=== PATIENT | male | born 1965 | race Caucasian/White ===

== ENCOUNTER 2017-11-10 18:38 | Inpatient (IN) | payer MEDICAID, SELFPAY ==
[~2017-11-10] VITALS: Ht 183.6 cm; Wt 94.7 kg
[2017-11-10] MEDS ORDERED: SODIUM CHLORIDE FLUSH 10ML SYR IVF ONE (19:00)
[2017-11-10] MEDS ORDERED: SODIUM CHLORIDE 0.9% 1,000ML IVBOLUS ONE ×2 (19:00→20:30)
[2017-11-10 19:23] LABS: PH, VENOUS 7.273 pH (7.320-7.420)
[2017-11-10 19:24] LABS: FIO2 RA %
[2017-11-10 19:32] LABS: BASOPHILS # (AUTO) 0.02 x10^3/uL (0-0.1); BASOPHILS % (AUTO) 0 % (0-1); EOSINOPHILS # (AUTO) 0.08 x10^3/uL (0-0.4); EOSINOPHILS % (AUTO) 1 % (1-7); LYMPHOCYTES % (AUTO) 24 % (22-44); MD NO; MEAN CORPUSCULAR HEMOGLOBIN 30.9 pg (27.5-34.5); MEAN CORPUSCULAR VOLUME 90.9 fL (81-97); MEAN PLATELET VOLUME 11.3 fL (7.4-10.4); MONOCYTES # (AUTO) 0.26 x10^3/uL (0.2-0.8); MONOCYTES % (AUTO) 3 % (2-9); NEUTROPHILS # (AUTO) 6.16 x10^3/uL (1.8-6.8); NEUTROPHILS % (AUTO) 72 % (42-75); PLATELET COUNT 260 x10^3/uL (130-400); RED BLOOD COUNT 4.88 x10^6/uL (4.38-5.82); RED CELL DISTRIBUTION WIDTH 12.7 % (9.4-14.8)
[2017-11-10 19:35] LABS: ALANINE AMINOTRANSFERASE 58 U/L (12-78); ALBUMIN 3.6 g/dL (3.4-5.0); ANION GAP 13 mmol/L (5-15); CALCIUM 8.6 mg/dL (8.5-10.1); CHLORIDE 78 mmol/L (98-107); CREATININE 2.49 mg/dL (0.7-1.3)
[2017-11-10 19:38] LABS: ACETONE, SERUM Moderate(40mg/dL) mg/dL (Negative)
[2017-11-10 19:46] LABS: ALKALINE PHOSPHATASE 251 U/L (45-117); BILIRUBIN,TOTAL 0.4 mg/dL (0.2-1.0); FREE T4 (FREE THYROXINE) 0.98 ng/dL (0.76-1.46); TOTAL PROTEIN 8.1 g/dL (6.4-8.2)
[2017-11-10 19:57] LABS: MICROSCOPIC NOT IND
[2017-11-10] MEDS ORDERED: INSULIN REGULAR 100 UNITS/ML, 3ML VIAL IVPush ONE (20:00)
[2017-11-10] MEDS ORDERED: SODIUM CHLORIDE 0.9% 1,000 ML IV ONE (20:00)
[2017-11-10 20:06] LABS: CULTURE INDICATED? NO
[2017-11-10] MEDS ORDERED: INSULIN REGULAR 100 UNITS/ML, 3ML VIAL ONE (20:21)
[2017-11-10] MEDS: SODIUM CHLORIDE 0.9% 1,000 ML IV SCH ×2 (20:22→20:57)
[2017-11-10] MEDS ORDERED: D5%-0.45% NACL 1,000 ML IV PRN (20:22)
[2017-11-10] MEDS ORDERED: REGULAR INSULIN 62.5 UNITS in SODIUM CHLORIDE 0.9% 249.375 ML IV PRN (20:22)
[2017-11-10] MEDS ORDERED: BISACODYL 10 MG SUPP PR PRN (20:30)
[2017-11-10] MEDS ORDERED: DOCUSATE 100 MG CAPSULE PO PRN (20:30)
[2017-11-10] MEDS ORDERED: hydrALAzine 20 MG/ML, 1ML IVPush PRN (20:30)
[2017-11-10] MEDS ORDERED: ACETAMINOPHEN 325 MG TABLET PO PRN (20:30)
[2017-11-10] MEDS ORDERED: ONDANSETRON 2MG/ML, 2ML IVPush PRN (20:30)
[2017-11-10] MEDS ORDERED: PROMETHAZINE 25 MG/ML, 1ML IM PRN (20:30)
[2017-11-10] MEDS ORDERED: OXYcodone IR 5MG TABLET PO PRN (20:30)
[2017-11-10] MEDS ORDERED: morphine SULFATE 10 MG/ML, 1ML IVPush PRN (20:30)
[2017-11-10] MEDS ORDERED: ONDANSETRON ODT 4 MG PO PRN (20:30)
[2017-11-10] MEDS ORDERED: POLYETHYLENE GLYCOL 17 GM PACKET PO PRN (20:30)
[2017-11-10] MEDS ORDERED: LISI1TAB7 PO (20:48)
[2017-11-10] MEDS ORDERED: OMEP20TA62 PO (20:52)
[2017-11-10] MEDS ORDERED: LEVO75TA5 PO (20:52)
[2017-11-10] MEDS ORDERED: LABETALOL 5MG/ML, 20ML IVPush PRN (21:00)
[2017-11-10 21:06] LABS: ANION GAP 12 mmol/L (5-15); CALCIUM 7.8 mg/dL (8.5-10.1); CHLORIDE 89 mmol/L (98-107)
[2017-11-10 21:16] LABS: FREE T4 (FREE THYROXINE) 0.94 ng/dL (0.76-1.46)
[2017-11-10 21:26] LABS: HEMOGLOBIN A1C 11.5 % (4.2-6.3)
[2017-11-10 21:30] VITALS: BP 164/108
[2017-11-10] MEDS: HEPARIN 5,000 UNITS/ML, 1ML SQ SCH (21:50)
[2017-11-11] MEDS: SODIUM CHLORIDE 0.9% 1,000 ML IV SCH (00:13)
[2017-11-11 02:25] LABS: ANION GAP 7 mmol/L (5-15); CALCIUM 8.3 mg/dL (8.5-10.1); CHLORIDE 102 mmol/L (98-107); CREATININE 1.54 mg/dL (0.7-1.3)
[2017-11-11 04:04] VITALS: BP 85/58
[2017-11-11 04:20] LABS: BASOPHILS # (AUTO) 0.11 x10^3/uL (0-0.1); BASOPHILS % (AUTO) 1 % (0-1); EOSINOPHILS # (AUTO) 0.18 x10^3/uL (0-0.4); EOSINOPHILS % (AUTO) 2 % (1-7); LYMPHOCYTES # (AUTO) 3.59 x10^3/uL (1-3.4); LYMPHOCYTES % (AUTO) 42 % (22-44); MD NO; MEAN CORPUSCULAR HEMOGLOBIN 30.2 pg (27.5-34.5); MEAN CORPUSCULAR HGB CONC 33.9 g/dL (33.2-36.2); MEAN CORPUSCULAR VOLUME 89.2 fL (81-97); MEAN PLATELET VOLUME 10.1 fL (7.4-10.4); MONOCYTES # (AUTO) 0.51 x10^3/uL (0.2-0.8); MONOCYTES % (AUTO) 6 % (2-9); NEUTROPHILS # (AUTO) 4.12 x10^3/uL (1.8-6.8); NEUTROPHILS % (AUTO) 48 % (42-75); PLATELET COUNT 234 x10^3/uL (130-400); RED BLOOD COUNT 4.28 x10^6/uL (4.38-5.82); RED CELL DISTRIBUTION WIDTH 12.4 % (9.4-14.8)
[2017-11-11] MEDS: HEPARIN 5,000 UNITS/ML, 1ML SQ SCH ×3 (04:28→20:51)
[2017-11-11 04:31] LABS: CHLORIDE 102 mmol/L (98-107)
[2017-11-11 04:47] LABS: ALANINE AMINOTRANSFERASE 44 U/L (12-78); ALKALINE PHOSPHATASE 107 U/L (45-117); ANION GAP 8 mmol/L (5-15); BILIRUBIN,TOTAL 0.7 mg/dL (0.2-1.0); CALCIUM 8.3 mg/dL (8.5-10.1); CHOL/HDL RATIO 4.1; CHOLESTEROL, TOTAL 114 mg/dL (140-239); CREATININE 1.39 mg/dL (0.7-1.3); HDL CHOL % 25 % (26-37); HDL CHOLESTEROL (DIRECT) 28 mg/dL (40-60); LDL CHOLESTEROL,CALCULATED 46 mg/dL (54-169); LDL/HDL RATIO 1.6 (0.5-3.0); TOTAL PROTEIN 6.5 g/dL (6.4-8.2); TRIGLYCERIDES 202 mg/dL (50-200); VLDL CHOLESTEROL 40 mg/dL (0-25)
[2017-11-11] MEDS: LEVOTHYROXINE 75 MCG TABLET PO SCH (06:03)
[2017-11-11] MEDS: INSULIN LISPRO 100 UNITS/ML, PEN SQ-INSULIN SCH ×5 (06:21→20:52)
[2017-11-11] MEDS ORDERED: INSULIN GLARGINE 100 UNITS/ML, PEN SQ-INSULIN SCH ×3 (07:30→21:00)
[2017-11-11] MEDS ORDERED: INSULIN LISPRO 100 UNITS/ML, PEN SQ-INSULIN SCH (08:00)
[2017-11-11] MEDS: OMEPRAZOLE 20 MG CAPSULE.DR PO SCH (08:14)
[2017-11-11] MEDS ORDERED: LISINOPRIL 20 MG TABLET PO SCH (09:00)
[2017-11-11] MEDS: AMLODIPINE 5 MG TABLET PO SCH ×2 (09:00→20:51)
[2017-11-11] MEDS ORDERED: INSULIN GLARGINE 100 UNITS/ML, PEN SQ-INSULIN ONE (11:30)
[2017-11-11] MEDS: SODIUM CHLORIDE 0.9% 100 ML IV SCH ×2 (15:30→16:30)
[2017-11-11 15:43] VITALS: BP 98/66
[2017-11-11] MEDS ORDERED: SODIUM CHLORIDE 0.9% 1,000 ML IV ONE (17:00)
[2017-11-11] MEDS: INSULIN GLARGINE 100 UNITS/ML, PEN SQ-INSULIN SCH (17:44)
[2017-11-11 19:35] VITALS: BP 91/61
[2017-11-11] MEDS ORDERED: SODIUM CHLORIDE 0.9% 1,000 ML IV SCH ×2 (20:22)
[2017-11-12 02:23] VITALS: BP 103/70
[2017-11-12 05:06] LABS: BASOPHILS # (AUTO) 0.04 x10^3/uL (0-0.1); BASOPHILS % (AUTO) 1 % (0-1); EOSINOPHILS # (AUTO) 0.14 x10^3/uL (0-0.4); EOSINOPHILS % (AUTO) 2 % (1-7); LYMPHOCYTES # (AUTO) 3.22 x10^3/uL (1-3.4); LYMPHOCYTES % (AUTO) 44 % (22-44); MD NO; MEAN CORPUSCULAR HEMOGLOBIN 30.8 pg (27.5-34.5); MEAN CORPUSCULAR HGB CONC 34.5 g/dL (33.2-36.2); MEAN CORPUSCULAR VOLUME 89.3 fL (81-97); MEAN PLATELET VOLUME 10.7 fL (7.4-10.4); MONOCYTES # (AUTO) 0.35 x10^3/uL (0.2-0.8); MONOCYTES % (AUTO) 5 % (2-9); NEUTROPHILS # (AUTO) 3.66 x10^3/uL (1.8-6.8); NEUTROPHILS % (AUTO) 49 % (42-75); PLATELET COUNT 214 x10^3/uL (130-400); RED BLOOD COUNT 4.09 x10^6/uL (4.38-5.82); RED CELL DISTRIBUTION WIDTH 12.9 % (9.4-14.8)
[2017-11-12 05:18] LABS: CALCIUM 8.1 mg/dL (8.5-10.1); CHLORIDE 103 mmol/L (98-107)
[2017-11-12 05:24] LABS: ALANINE AMINOTRANSFERASE 45 U/L (12-78); ALBUMIN 2.6 g/dL (3.4-5.0); ALKALINE PHOSPHATASE 80 U/L (45-117); ANION GAP 9 mmol/L (5-15); BILIRUBIN,TOTAL 0.3 mg/dL (0.2-1.0); TOTAL PROTEIN 6.1 g/dL (6.4-8.2)
[2017-11-12] MEDS: INSULIN GLARGINE 100 UNITS/ML, PEN SQ-INSULIN SCH (05:28)
[2017-11-12] MEDS: HEPARIN 5,000 UNITS/ML, 1ML SQ SCH ×3 (05:28→20:04)
[2017-11-12] MEDS: LEVOTHYROXINE 75 MCG TABLET PO SCH (05:28)
[2017-11-12] MEDS: INSULIN LISPRO 100 UNITS/ML, PEN SQ-INSULIN SCH ×4 (07:18→20:15)
[2017-11-12] MEDS ORDERED: INSULIN GLARGINE 100 UNITS/ML, PEN SQ-INSULIN ONE (07:30)
[2017-11-12 09:02] VITALS: BP 106/72
[2017-11-12] MEDS: AMLODIPINE 5 MG TABLET PO SCH (09:13)
[2017-11-12] MEDS: OMEPRAZOLE 20 MG CAPSULE.DR PO SCH (09:13)
[2017-11-12] MEDS: SODIUM CHLORIDE 0.9% 1,000 ML IV SCH ×2 (13:27→20:04)
[2017-11-12] MEDS: NEUTRA PHOS K 250 MG TABLET PO SCH ×3 (13:27→20:04)
[2017-11-12 15:31] VITALS: BP 102/65
[2017-11-12 20:02] VITALS: BP 110/73
[2017-11-12] MEDS ORDERED: INSULIN GLARGINE 100 UNITS/ML, PEN SQ-INSULIN SCH ×3 (21:00)
[2017-11-13 03:50] VITALS: BP 131/82
[2017-11-13] MEDS: LEVOTHYROXINE 75 MCG TABLET PO SCH (05:17)
[2017-11-13] MEDS: HEPARIN 5,000 UNITS/ML, 1ML SQ SCH (05:17)
[2017-11-13 05:34] LABS: ANION GAP 8 mmol/L (5-15); CALCIUM 8.1 mg/dL (8.5-10.1); CHLORIDE 109 mmol/L (98-107); CREATININE 1.09 mg/dL (0.7-1.3)
[2017-11-13 06:45] VITALS: BP 124/83
[2017-11-13] MEDS: INSULIN LISPRO 100 UNITS/ML, PEN SQ-INSULIN SCH ×2 (07:37→11:36)
[2017-11-13] MEDS ORDERED: INSULIN GLARGINE 100 UNITS/ML, PEN SQ-INSULIN SCH (09:00)
[2017-11-13] MEDS ORDERED: AMLODIPINE 5 MG TABLET PO SCH (09:00)
[2017-11-13] MEDS: OMEPRAZOLE 20 MG CAPSULE.DR PO SCH (09:02)
[2017-11-13] MEDS ORDERED: AMLO5TAB2 PO (11:08)
[2017-11-13] MEDS ORDERED: POTASSIUM CHLORIDE 20 MEQ TAB.ER.PRT PO ONE (11:30)
[2017-11-13 13:11] VITALS: BP 131/84
[2017-11-13] MEDS ORDERED: INSU100I34 SC (13:25)
== END 2017-11-13 14:21 | disposition home or self-care (01) | DRG 682 ==
LOC: ED 20:24 → CCU 20:25 → ED 21:24 → 3NE 11-11 14:44
PROVIDERS: ADMIT Internal Medicine; ATTEND Internal Medicine
DX: N17.9 Acute kidney failure, unspecified (principal); E11.00 Type 2 diabetes mellitus with hyperosmolarity without nonketotic hyperglycemic-hyperosmolar coma (NKHHC); E87.1 Hypo-osmolality and hyponatremia; E86.0 Dehydration; K21.9 Gastro-esophageal reflux disease without esophagitis; I10 Essential (primary) hypertension; F17.210 Nicotine dependence, cigarettes, uncomplicated; E83.39 Other disorders of phosphorus metabolism; E11.65 Type 2 diabetes mellitus with hyperglycemia; E03.9 Hypothyroidism, unspecified; Z79.899 Other long term (current) drug therapy; Z79.1 Long term (current) use of non-steroidal anti-inflammatories (NSAID); Z79.2 Long term (current) use of antibiotics
CPT/HCPCS: 36415; 80048; 80053; 80061; 81003; 82010; 82803; 82947; 82962; 83036; 83735; 84100; 84439; 84443; 84481; 85025; 87081; 93005; 96361; 96374; 99291; J1644; J1815; J7030

== ENCOUNTER 2018-11-23 13:49 | Inpatient (IN) | payer MEDICAID ==
[~2018-11-23] VITALS: Ht 182.9 cm; Wt 90.4 kg
[2018-11-26 08:07] VITALS: BP 145/92
== END 2018-11-26 14:14 | disposition home or self-care (01) | DRG 638 ==
LOC: ED 15:49 → EDIP 16:35 → 3NE 17:35 → DCLOUNGE 11-26 13:55
PROVIDERS: ADMIT Student in an Organized Health Care Education/Training Program; ATTEND Student in an Organized Health Care Education/Training Program
DX: E11.65 Type 2 diabetes mellitus with hyperglycemia (principal); N17.9 Acute kidney failure, unspecified; E03.9 Hypothyroidism, unspecified; E86.0 Dehydration; F17.210 Nicotine dependence, cigarettes, uncomplicated; I10 Essential (primary) hypertension; K21.9 Gastro-esophageal reflux disease without esophagitis
CPT/HCPCS: 36415; 80048; 80053; 81003; 82010; 82800; 82947; 82962; 83036; 83519; 84439; 84443; 85025; 86337; 86341; 96374; 99285; G0378; J2405; J1815; J7030; J7040

== ENCOUNTER 2018-12-11 15:51 | Inpatient (IN) | payer MEDICAID ==
[~2018-12-11] VITALS: Ht 182.9 cm; Wt 89.0 kg
[2018-12-13 08:40] VITALS: BP 103/68
== END 2018-12-13 10:57 | disposition home or self-care (01) | DRG 871 ==
LOC: ED 17:32 → EDIP 17:33 → ED 17:47 → 5SO 19:25 → DCLOUNGE 12-13 10:45
PROVIDERS: ADMIT Internal Medicine; ATTEND Internal Medicine
DX: A41.9 Sepsis, unspecified organism (principal); J18.1 Lobar pneumonia, unspecified organism; N17.0 Acute kidney failure with tubular necrosis; R65.21 Severe sepsis with septic shock; D64.9 Anemia, unspecified; E03.9 Hypothyroidism, unspecified; E86.0 Dehydration; F17.210 Nicotine dependence, cigarettes, uncomplicated; I25.2 Old myocardial infarction; I35.8 Other nonrheumatic aortic valve disorders; K21.9 Gastro-esophageal reflux disease without esophagitis; Z79.4 Long term (current) use of insulin; Z91.14 Patient's other noncompliance with medication regimen; R19.7 Diarrhea, unspecified; E11.649 Type 2 diabetes mellitus with hypoglycemia without coma; I12.9 Hypertensive chronic kidney disease with stage 1 through stage 4 chronic kidney disease, or unspecified chronic kidney disease; E11.22 Type 2 diabetes mellitus with diabetic chronic kidney disease; E11.21 Type 2 diabetes mellitus with diabetic nephropathy
CPT/HCPCS: 36415; 71045; 71046; 78452; 80048; 80061; 82040; 82947; 82962; 83605; 83735; 84145; 84443; 84484; 85025; 87040; 93005; 93017; 93306; 99285; G0378; J0456; J0696; J1644; A9502; C9898; J1815; J7030; J7050

== ENCOUNTER 2020-01-09 15:05 | Emergency (ER) | payer MEDICAID ==
[~2020-01-09] VITALS: Ht 182.9 cm; Wt 86.0 kg
[~2020-01-09 15:05] MED LIST: AMLO-150 PO; ATOR20TA37 PO; BASAGLAR KWIKPEN SC; DULA0.75 SQ; INSU100I13 SQ-INSULIN; INSU100I34 SC; INSU100V34 SQ; LEVO75TA5 PO; LISI1TAB20 PO; LISI5TAB7 PO; METF500T17 PO; NICO-485 TD; OMEP20TA62 PO
[2020-01-09 15:31] VITALS: BP 144/101
--- NOTE | 2020-01-09 16:13 | NUR ---
MANAGEMENT PROFESSOR: PT TO ROOM FROM NATALEE MCGOWAN
[2020-01-09 16:20] LABS: BASOPHILS # (AUTO) 0.05 x10^3/uL (0-0.1); BASOPHILS % (AUTO) 1 % (0-1); EOSINOPHILS # (AUTO) 0.14 x10^3/uL (0-0.4); EOSINOPHILS % (AUTO) 2 % (1-7); LYMPHOCYTES # (AUTO) 2.23 x10^3/uL (1-3.4); LYMPHOCYTES % (AUTO) 33 % (22-44); MD NO; MEAN CORPUSCULAR HEMOGLOBIN 29.6 pg (27.5-34.5); MEAN CORPUSCULAR VOLUME 92.4 fL (81-97); MEAN PLATELET VOLUME 9.4 fL (7.4-10.4); MONOCYTES # (AUTO) 0.38 x10^3/uL (0.2-0.8); MONOCYTES % (AUTO) 6 % (2-9); NEUTROPHILS # (AUTO) 3.87 x10^3/uL (1.8-6.8); NEUTROPHILS % (AUTO) 58 % (42-75); PLATELET COUNT 207 x10^3/uL (130-400); RED BLOOD COUNT 4.33 x10^6/uL (4.38-5.82); RED CELL DISTRIBUTION WIDTH 12.8 % (9.4-14.8)
[2020-01-09 16:28] LABS: ANION GAP 5 mmol/L (5-15); CALCIUM 9.2 mg/dL (8.5-10.1); CHLORIDE 96 mmol/L (98-107); CREATININE 1.66 mg/dL (0.7-1.3)
[2020-01-09] MEDS ORDERED: DIPH,PERTUSS(ACELL),TET VAC/PF 0.5 ML IM-VACC ONE ×2 (16:30→17:22)
--- NOTE | 2020-01-09 16:53 | NUR ---
RECEIVED CRITICAL VALUE OF BLOOD GLUCOSE 683. NOTIFIED. PIV PLACED, IVF RUNNING.
[2020-01-09] MEDS ORDERED: SODIUM CHLORIDE 0.9% 1,000ML IVBOLUS ONE ×2 (17:30)
--- NOTE | 2020-01-09 17:38 | NUR ---
2ND LITER NS RUNNING PER JUN.
[2020-01-09 18:28] LABS: ALBUMIN 3.1 g/dL (3.4-5.0); ANION GAP 6 mmol/L (5-15); CALCIUM 8.3 mg/dL (8.5-10.1); CHLORIDE 103 mmol/L (98-107)
[2020-01-09 18:30] LABS: CREATININE 1.47 mg/dL (0.7-1.3)
[2020-01-09] MEDS ORDERED: INSULIN SINGLE DOSE, ER ONE (19:23)
[2020-01-09] MEDS ORDERED: INSULIN REGULAR 100 UNITS/ML, 3ML VIAL IVPush ONE (19:30)
== END 2020-01-09 20:27 | disposition home or self-care (01) ==
LOC: ED 19:35
DX: S90.821A Blister (nonthermal), right foot, initial encounter (principal); E11.621 Type 2 diabetes mellitus with foot ulcer; L89.92 Pressure ulcer of unspecified site, stage 2; I10 Essential (primary) hypertension; K21.9 Gastro-esophageal reflux disease without esophagitis; F17.200 Nicotine dependence, unspecified, uncomplicated; X58.XXXA Exposure to other specified factors, initial encounter; Y93.89 Activity, other specified; Y92.89 Other specified places as the place of occurrence of the external cause; Y99.8 Other external cause status
CPT/HCPCS: 36415; 73630; 80048; 82040; 82962; 85025; 90471; 90715; 96361; 96374; 99284; J1815; J7030

== ENCOUNTER 2020-06-10 15:39 | Inpatient (IN) | payer MEDICAID ==
[~2020-06-10] VITALS: Ht 182.9 cm; Wt 85.1 kg
[2020-06-10] MEDS ORDERED: SODIUM CHLORIDE 0.9% 1,000ML IVBOLUS ONE ×2 (16:00→18:00)
[2020-06-10 16:19] LABS: O2 FLOW ROOM AIR L/min
[2020-06-10 16:26] LABS: BASOPHILS % (AUTO) 1 % (0-1); EOSINOPHILS % (AUTO) 1 % (1-7); LYMPHOCYTES % (AUTO) 11 % (22-44); MEAN CORPUSCULAR HGB CONC 34.1 g/dL (33.2-36.2); MEAN PLATELET VOLUME 9.6 fL (7.4-10.4); MONOCYTES % (AUTO) 8 % (2-9); NEUTROPHILS % (AUTO) 80 % (42-75); PLATELET COUNT 248 x10^3/uL (130-400); RED BLOOD COUNT 4.01 x10^6/uL (4.38-5.82); RED CELL DISTRIBUTION WIDTH 12.6 % (9.4-14.8)
[2020-06-10 16:28] LABS: MD NO
[2020-06-10 16:29] LABS: ALBUMIN 3.3 g/dL (3.4-5.0); ANION GAP 8 mmol/L (5-15); CALCIUM 9.2 mg/dL (8.5-10.1); CHLORIDE 99 mmol/L (98-107)
[2020-06-10 16:32] LABS: ALANINE AMINOTRANSFERASE 34 U/L (12-78); ALKALINE PHOSPHATASE 100 U/L (45-117); BILIRUBIN,TOTAL 0.9 mg/dL (0.2-1.0); CREATININE 3.96 mg/dL (0.7-1.3); TOTAL PROTEIN 8.4 g/dL (6.4-8.2)
--- NOTE | 2020-06-10 17:01 | NUR ---
supervisor silvering department: pt from lobby to room 26
[2020-06-10 17:04] LABS: ACETONE, SERUM Negative (Negative)
[2020-06-10] MEDS ORDERED: INSU100I34 SQ-INSULIN (17:38)
[2020-06-10] MEDS ORDERED: LEVO25TA2 PO (17:38)
[2020-06-10] MEDS ORDERED: LIDOCAINE 2%,20 ML JEL.PF.APP MM ONE (17:44)
[2020-06-10 18:24] LABS: MICROSCOPIC AUTO
--- NOTE | 2020-06-10 18:35 | NUR ---
PT IN BED WITH NO SIGNS OR SYMPTOMS OF ACUTE DISTRESS NOTED RESPIRATIONS EVEN AND UNLABORED STATES PAIN IN ABD DOWN TO 3/10, COMPLAINING OF BEING HUNGRY. PT ON HOG CONFINEMENT SYSTEM MANAGER, IVF COMPLETE AT THIS TIME. DAWSON IN PLACE, CLAMPED AT THIS TIME. BED RAILS UP BILATERALLY AND CALL LIGHT WITHIN REACH
--- NOTE | 2020-06-10 19:28 | NUR ---
REPORT CALLED TO FLOOR, PT READY TO TRANSPORT. THIS RN IN ROOM TO DRAIN ANOTHER 1L OFF DAWSON, LINE CLAMPED. PT IN BED WITH ETL ARCHITECT IN PLACE, BED RAILS UP BILATERALLY AND CALL LIGHT WITHIN REACH. NO SIGNS OR SYMPTOMS OF ACUTE DISTRESS NOTED RESPIRATIONS EVEN AND UNLABORED
[2020-06-10] MEDS ORDERED: ONDANSETRON 2MG/ML, 2ML IVPush PRN (20:00)
[2020-06-10] MEDS ORDERED: OXYcodone IR 5MG TABLET PO PRN (20:00)
[2020-06-10] MEDS ORDERED: MAGNESIUM SULFATE PMX 2GM/50ML 50 ML IV ONE (20:00)
[2020-06-10] MEDS ORDERED: POLYETHYLENE GLYCOL 17 GM PACKET PO PRN (20:00)
[2020-06-10] MEDS ORDERED: BISACODYL 10 MG SUPP PR PRN (20:00)
[2020-06-10] MEDS ORDERED: PROMETHAZINE 25 MG/ML, 1ML IM PRN (20:00)
[2020-06-10] MEDS ORDERED: hydrALAzine 20 MG/ML, 1ML IVPush PRN (20:00)
[2020-06-10] MEDS ORDERED: ONDANSETRON ODT 4 MG PO PRN (20:00)
[2020-06-10] MEDS ORDERED: morphine SULFATE 10 MG/ML, 1ML IVPush PRN (20:00)
[2020-06-10] MEDS ORDERED: DOCUSATE 100 MG CAPSULE PO PRN (20:00)
[2020-06-10 20:27] VITALS: BP 129/81
[2020-06-10 20:36] VITALS: BP 129/81
[2020-06-10] MEDS: SODIUM CHLORIDE 0.9% 1,000 ML IV SCH (21:12)
[2020-06-10] MEDS: CEFTRIAXONE PMX 2GM/50ML 50 ML IVPB SCH (21:44)
[2020-06-10] MEDS: HEPARIN 5,000 UNITS/ML, 1ML SQ SCH (21:44)
[2020-06-10] MEDS: INSULIN LISPRO 100 UNITS/ML, PEN SQ-INSULIN SCH (21:46)
[2020-06-10] MEDS: INSULIN GLARGINE 100 UNITS/ML, PEN SQ-INSULIN SCH (21:46)
[2020-06-10 23:28] LABS: ANION GAP 8 mmol/L (5-15); CALCIUM 8.5 mg/dL (8.5-10.1); CHLORIDE 105 mmol/L (98-107); CREATININE 3.26 mg/dL (0.7-1.3)
[2020-06-11 00:29] VITALS: BP 134/83
[2020-06-11] MEDS: ACETAMINOPHEN 325 MG TABLET PO PRN ×3 (01:00→16:22)
[2020-06-11] MEDS: SODIUM CHLORIDE 0.9% 1,000 ML IV SCH ×2 (05:02→13:05)
[2020-06-11] MEDS: HEPARIN 5,000 UNITS/ML, 1ML SQ SCH ×3 (05:03→20:37)
[2020-06-11] MEDS: INSULIN LISPRO 100 UNITS/ML, PEN SQ-INSULIN SCH ×4 (07:00→20:38)
[2020-06-11 07:14] VITALS: BP 152/78
[2020-06-11] MEDS: TAMSULOSIN 0.4 MG CAP.ER.24H PO SCH (07:53)
[2020-06-11 08:57] LABS: BASOPHILS % (AUTO) 1 % (0-1); EOSINOPHILS % (AUTO) 0 % (1-7); LYMPHOCYTES % (AUTO) 10 % (22-44); MEAN CORPUSCULAR HEMOGLOBIN 29.7 pg (27.5-34.5); MEAN CORPUSCULAR HGB CONC 33.5 g/dL (33.2-36.2); MEAN PLATELET VOLUME 9.4 fL (7.4-10.4); MONOCYTES % (AUTO) 9 % (2-9); NEUTROPHILS % (AUTO) 80 % (42-75); PLATELET COUNT 213 x10^3/uL (130-400); RED BLOOD COUNT 3.83 x10^6/uL (4.38-5.82); RED CELL DISTRIBUTION WIDTH 12.6 % (9.4-14.8)
[2020-06-11 09:05] LABS: ALBUMIN 2.7 g/dL (3.4-5.0); ANION GAP 9 mmol/L (5-15); CALCIUM 8.9 mg/dL (8.5-10.1); CHLORIDE 105 mmol/L (98-107)
[2020-06-11 09:06] LABS: MD NO
[2020-06-11 09:15] LABS: ALANINE AMINOTRANSFERASE 24 U/L (12-78); ALKALINE PHOSPHATASE 75 U/L (45-117); BILIRUBIN,TOTAL 0.6 mg/dL (0.2-1.0); CHOL/HDL RATIO 2.5; CHOLESTEROL, TOTAL 112 mg/dL (140-239); CREATININE 2.69 mg/dL (0.7-1.3); HDL CHOL % 39 % (26-37); HDL CHOLESTEROL (DIRECT) 44 mg/dL (40-60); LDL CHOLESTEROL,CALCULATED 49 mg/dL (54-169); LDL/HDL RATIO 1.1 (0.5-3.0); TOTAL PROTEIN 7.2 g/dL (6.4-8.2); TRIGLYCERIDES 96 mg/dL (50-200); VLDL CHOLESTEROL 19 mg/dL (0-25)
[2020-06-11 10:09] LABS: ESTIMATED AVERAGE GLUCOSE 355 mg/dL (0-126)
[2020-06-11] MEDS: INSULIN GLARGINE 100 UNITS/ML, PEN SQ-INSULIN SCH ×2 (11:18→20:38)
[2020-06-11 12:16] VITALS: BP 101/59
[2020-06-11] MEDS ORDERED: PHARMACOKINETIC MONITORING MC PRN (13:30)
[2020-06-11] MEDS ORDERED: PHARMACOKINETIC CONSULTATION MC ONE (13:30)
[2020-06-11] MEDS ORDERED: VANCOMYCIN 1,700 MG in SODIUM CHLORIDE 0.9% 250 ML IV ONE (13:30)
[2020-06-11] MEDS ORDERED: VANCOMYCIN PER PHARMACY MC PRN (13:30)
[2020-06-11 19:08] VITALS: BP 90/56
[2020-06-11 19:28] VITALS: BP 96/59
[2020-06-11] MEDS: CEFTRIAXONE PMX 2GM/50ML 50 ML IVPB SCH (19:28)
[2020-06-11] MEDS ORDERED: LINEZOLID 600 MG TABLET PO SCH (21:00)
[2020-06-12 01:01] VITALS: BP 122/81
[2020-06-12 04:32] LABS: BASOPHILS % (AUTO) 1 % (0-1); EOSINOPHILS % (AUTO) 1 % (1-7); LYMPHOCYTES % (AUTO) 14 % (22-44); MEAN CORPUSCULAR HEMOGLOBIN 30.1 pg (27.5-34.5); MEAN CORPUSCULAR HGB CONC 34.5 g/dL (33.2-36.2); MEAN PLATELET VOLUME 9.7 fL (7.4-10.4); MONOCYTES % (AUTO) 8 % (2-9); NEUTROPHILS % (AUTO) 76 % (42-75); PLATELET COUNT 197 x10^3/uL (130-400); RED BLOOD COUNT 3.23 x10^6/uL (4.38-5.82); RED CELL DISTRIBUTION WIDTH 12.2 % (9.4-14.8)
[2020-06-12 04:37] LABS: MD NO
[2020-06-12 04:42] LABS: ALANINE AMINOTRANSFERASE 19 U/L (12-78); ALBUMIN 2.2 g/dL (3.4-5.0); ANION GAP 9 mmol/L (5-15); CALCIUM 8.3 mg/dL (8.5-10.1); CHLORIDE 106 mmol/L (98-107)
[2020-06-12 04:45] LABS: ALKALINE PHOSPHATASE 79 U/L (45-117); BILIRUBIN,TOTAL 0.2 mg/dL (0.2-1.0); TOTAL PROTEIN 6.7 g/dL (6.4-8.2)
[2020-06-12] MEDS: HEPARIN 5,000 UNITS/ML, 1ML SQ SCH ×2 (05:06→13:13)
[2020-06-12 06:50] VITALS: BP 113/78
[2020-06-12] MEDS: ACETAMINOPHEN 325 MG TABLET PO PRN (07:27)
[2020-06-12] MEDS: INSULIN GLARGINE 100 UNITS/ML, PEN SQ-INSULIN SCH ×2 (07:28→20:25)
[2020-06-12] MEDS: INSULIN LISPRO 100 UNITS/ML, PEN SQ-INSULIN SCH ×4 (07:28→20:25)
[2020-06-12] MEDS: TAMSULOSIN 0.4 MG CAP.ER.24H PO SCH (07:42)
[2020-06-12] MEDS ORDERED: VANCOMYCIN 1,600 MG in SODIUM CHLORIDE 0.9% 250 ML IV ONE (10:00)
[2020-06-12] MEDS ORDERED: CEFAZOLIN 2,000 MG in SODIUM CHLORIDE 0.9% 50 ML IV SCH (13:30)
[2020-06-12] MEDS ORDERED: PNEUMOC 13-VALENT VACC, 0.5 ML IM-VACC ONE (13:30)
[2020-06-12 13:38] VITALS: BP 96/63
[2020-06-12 14:48] LABS: HCT (SEDRATE) 27.7 % (39.2-51.8)
[2020-06-12] MEDS: CEFAZOLIN PMX 2GM/50ML 50 ML IVPB SCH (15:54)
[2020-06-12 20:53] VITALS: BP 124/85
[2020-06-13 02:55] VITALS: BP 116/82
[2020-06-13] MEDS: CEFAZOLIN PMX 2GM/50ML 50 ML IVPB SCH ×3 (03:11→19:59)
[2020-06-13 04:22] LABS: BASOPHILS % (AUTO) 1 % (0-1); EOSINOPHILS % (AUTO) 3 % (1-7); LYMPHOCYTES % (AUTO) 23 % (22-44); MEAN CORPUSCULAR HEMOGLOBIN 30.2 pg (27.5-34.5); MEAN CORPUSCULAR HGB CONC 34.2 g/dL (33.2-36.2); MEAN PLATELET VOLUME 8.7 fL (7.4-10.4); MONOCYTES % (AUTO) 8 % (2-9); NEUTROPHILS % (AUTO) 65 % (42-75); PLATELET COUNT 239 x10^3/uL (130-400); RED BLOOD COUNT 3.15 x10^6/uL (4.38-5.82); RED CELL DISTRIBUTION WIDTH 12.3 % (9.4-14.8)
[2020-06-13 04:27] LABS: MD NO
[2020-06-13 04:29] LABS: ANION GAP 7 mmol/L (5-15); CALCIUM 8.4 mg/dL (8.5-10.1); CHLORIDE 107 mmol/L (98-107)
[2020-06-13 06:25] VITALS: BP 138/93
[2020-06-13] MEDS: INSULIN LISPRO 100 UNITS/ML, PEN SQ-INSULIN SCH ×4 (07:39→19:59)
[2020-06-13] MEDS ORDERED: MAGNESIUM SULFATE PMX 2GM/50ML 50 ML IV ONE (09:00)
[2020-06-13] MEDS: TAMSULOSIN 0.4 MG CAP.ER.24H PO SCH (09:14)
[2020-06-13] MEDS: INSULIN GLARGINE 100 UNITS/ML, PEN SQ-INSULIN SCH (09:15)
[2020-06-13 12:41] VITALS: BP 105/70
[2020-06-13 19:13] VITALS: BP 96/64
[2020-06-13] MEDS: ACETAMINOPHEN 325 MG TABLET PO PRN (21:47)
[2020-06-14 00:44] VITALS: BP 128/79
[2020-06-14] MEDS: CEFAZOLIN PMX 2GM/50ML 50 ML IVPB SCH ×3 (03:58→19:42)
[2020-06-14 04:34] LABS: BASOPHILS % (AUTO) 1 % (0-1); EOSINOPHILS % (AUTO) 4 % (1-7); LYMPHOCYTES % (AUTO) 27 % (22-44); MEAN CORPUSCULAR HEMOGLOBIN 30.7 pg (27.5-34.5); MEAN CORPUSCULAR HGB CONC 35.1 g/dL (33.2-36.2); MEAN PLATELET VOLUME 8.7 fL (7.4-10.4); MONOCYTES % (AUTO) 7 % (2-9); NEUTROPHILS % (AUTO) 61 % (42-75); PLATELET COUNT 282 x10^3/uL (130-400); RED BLOOD COUNT 3.29 x10^6/uL (4.38-5.82); RED CELL DISTRIBUTION WIDTH 12.3 % (9.4-14.8)
[2020-06-14 04:41] LABS: MD NO
[2020-06-14 04:42] LABS: ANION GAP 10 mmol/L (5-15); CALCIUM 8.5 mg/dL (8.5-10.1); CHLORIDE 104 mmol/L (98-107); CREATININE 2.05 mg/dL (0.7-1.3)
[2020-06-14 06:33] VITALS: BP 142/89
[2020-06-14] MEDS: TAMSULOSIN 0.4 MG CAP.ER.24H PO SCH (08:01)
[2020-06-14] MEDS: INSULIN GLARGINE 100 UNITS/ML, PEN SQ-INSULIN SCH (08:08)
[2020-06-14] MEDS: INSULIN LISPRO 100 UNITS/ML, PEN SQ-INSULIN SCH ×4 (08:09→19:45)
[2020-06-14] MEDS: SODIUM CHLORIDE 0.9% 1,000 ML IV SCH ×2 (08:14→19:43)
[2020-06-14] MEDS ORDERED: MAGNESIUM SULFATE PMX 2GM/50ML 50 ML IV ONE (09:00)
[2020-06-14 12:20] VITALS: BP 96/67
[2020-06-14 19:40] VITALS: BP 127/82
[2020-06-14] MEDS ORDERED: INSULIN GLARGINE 100 UNITS/ML, PEN SQ-INSULIN SCH (21:00)
[2020-06-14] MEDS ORDERED: CALCIUM CARBONATE 500 MG TAB.CHEW PO ONE (21:30)
[2020-06-14] MEDS ORDERED: OMEPRAZOLE 20 MG CAPSULE.DR PO PRN (21:30)
[2020-06-15 02:03] VITALS: BP 124/85
[2020-06-15] MEDS: SODIUM CHLORIDE 0.9% 1,000 ML IV SCH (03:29)
[2020-06-15] MEDS: CEFAZOLIN PMX 2GM/50ML 50 ML IVPB SCH ×3 (03:32→19:55)
[2020-06-15 05:16] LABS: BASOPHILS % (AUTO) 2 % (0-1); EOSINOPHILS % (AUTO) 4 % (1-7); LYMPHOCYTES % (AUTO) 29 % (22-44); MEAN CORPUSCULAR HGB CONC 34.4 g/dL (33.2-36.2); MEAN PLATELET VOLUME 9.1 fL (7.4-10.4); MONOCYTES % (AUTO) 8 % (2-9); NEUTROPHILS % (AUTO) 58 % (42-75); PLATELET COUNT 301 x10^3/uL (130-400); RED BLOOD COUNT 3.36 x10^6/uL (4.38-5.82); RED CELL DISTRIBUTION WIDTH 12.6 % (9.4-14.8)
[2020-06-15 05:20] LABS: ANION GAP 8 mmol/L (5-15); CALCIUM 8.6 mg/dL (8.5-10.1); CHLORIDE 104 mmol/L (98-107); CREATININE 1.86 mg/dL (0.7-1.3)
[2020-06-15 05:26] LABS: MD NO
[2020-06-15 06:56] VITALS: BP 117/81
[2020-06-15] MEDS: INSULIN LISPRO 100 UNITS/ML, PEN SQ-INSULIN SCH ×6 (07:35→20:04)
[2020-06-15] MEDS: TAMSULOSIN 0.4 MG CAP.ER.24H PO SCH (08:41)
[2020-06-15 12:10] VITALS: BP 103/70
[2020-06-15] MEDS: ATORVASTATIN 20 MG TABLET PO SCH (19:55)
[2020-06-15] MEDS: INSULIN GLARGINE 100 UNITS/ML, PEN SQ-INSULIN SCH (20:03)
[2020-06-15 20:19] VITALS: BP 97/65
[2020-06-16 00:24] VITALS: BP 100/65
[2020-06-16] MEDS: CEFAZOLIN PMX 2GM/50ML 50 ML IVPB SCH ×3 (03:50→20:18)
[2020-06-16 05:00] LABS: ANION GAP 7 mmol/L (5-15); CALCIUM 8.6 mg/dL (8.5-10.1); CHLORIDE 104 mmol/L (98-107)
[2020-06-16 05:01] LABS: CREATININE 1.94 mg/dL (0.7-1.3)
[2020-06-16] MEDS: LEVOTHYROXINE 125 MCG TABLET PO SCH (06:11)
[2020-06-16] MEDS ORDERED: SODIUM CHLORIDE 0.9% 1,000ML IVBOLUS ONE (06:30)
[2020-06-16 06:35] VITALS: BP 119/74
[2020-06-16] MEDS ORDERED: INSULIN LISPRO 100 UNITS/ML, PEN SQ-INSULIN SCH (07:00)
[2020-06-16] MEDS: INSULIN GLARGINE 100 UNITS/ML, PEN SQ-INSULIN SCH ×3 (08:15→20:23)
[2020-06-16] MEDS: TAMSULOSIN 0.4 MG CAP.ER.24H PO SCH (08:38)
[2020-06-16] MEDS: INSULIN LISPRO 100 UNITS/ML, PEN SQ-INSULIN SCH ×6 (08:41→20:24)
[2020-06-16 12:09] VITALS: BP 106/72
[2020-06-16] MEDS: ATORVASTATIN 20 MG TABLET PO SCH (20:21)
[2020-06-16 20:28] VITALS: BP 108/74
[2020-06-16] MEDS ORDERED: MELATONIN 5 MG TABLET ONE (20:39)
[2020-06-16] MEDS ORDERED: MELATONIN 5 MG TABLET PO PRN (21:00)
[2020-06-17 00:50] VITALS: BP 112/72
[2020-06-17] MEDS: CEFAZOLIN PMX 2GM/50ML 50 ML IVPB SCH (04:30)
[2020-06-17] MEDS: LEVOTHYROXINE 125 MCG TABLET PO SCH (06:11)
[2020-06-17] MEDS: INSULIN LISPRO 100 UNITS/ML, PEN SQ-INSULIN SCH ×4 (07:00→11:00)
[2020-06-17 07:01] VITALS: BP 106/74
[2020-06-17 07:48] LABS: ANION GAP 7 mmol/L (5-15); CALCIUM 8.9 mg/dL (8.5-10.1); CHLORIDE 108 mmol/L (98-107); CREATININE 1.91 mg/dL (0.7-1.3)
[2020-06-17] MEDS ORDERED: ERTAPENEM 1 GM IM ONE (08:30)
[2020-06-17] MEDS ORDERED: TAMS-11 PO ×2 (08:57→08:58)
[2020-06-17] MEDS ORDERED: INSU100I13 SQ-INSULIN (08:57)
[2020-06-17] MEDS ORDERED: ERTA1VIA IVPB (08:57)
[2020-06-17] MEDS ORDERED: INSU100I11 SQ-INSULIN (08:57)
[2020-06-17] MEDS ORDERED: LIDOCAINE 1%, 10ML IM ONE (09:00)
[2020-06-17] MEDS ORDERED: ERTAPENEM 1 GM in SODIUM CHLORIDE 0.9% 50 ML IV ONE ×2 (09:30→11:00)
[2020-06-17] MEDS: TAMSULOSIN 0.4 MG CAP.ER.24H PO SCH (10:15)
[2020-06-17] MEDS: INSULIN GLARGINE 100 UNITS/ML, PEN SQ-INSULIN SCH (11:06)
== END 2020-06-17 12:30 | disposition home or self-care (01) | DRG 871 ==
LOC: ED 17:30 → EDIP 19:03 → 4WST 19:56 → DCLOUNGE 06-17 12:21
PROVIDERS: ADMIT Internal Medicine; ATTEND Hospitalist
PROC: 02HV33Z Insertion of Infusion Device into Superior Vena Cava, Percutaneous Approach (ICD-10-PCS; principal; 2020-06-16)
PROC: B548ZZA Ultrasonography of Superior Vena Cava, Guidance (ICD-10-PCS; 2020-06-16)
PROC: B5181ZA Fluoroscopy of Superior Vena Cava using Low Osmolar Contrast, Guidance (ICD-10-PCS; 2020-06-16)
DX: A41.01 Sepsis due to Methicillin susceptible Staphylococcus aureus (principal); N17.0 Acute kidney failure with tubular necrosis; E87.1 Hypo-osmolality and hyponatremia; N13.6 Pyonephrosis; B18.2 Chronic viral hepatitis C; D64.9 Anemia, unspecified; E03.9 Hypothyroidism, unspecified; E11.22 Type 2 diabetes mellitus with diabetic chronic kidney disease; E11.65 Type 2 diabetes mellitus with hyperglycemia; E78.5 Hyperlipidemia, unspecified; E86.0 Dehydration; E87.5 Hyperkalemia; F17.210 Nicotine dependence, cigarettes, uncomplicated; I12.9 Hypertensive chronic kidney disease with stage 1 through stage 4 chronic kidney disease, or unspecified chronic kidney disease; I25.2 Old myocardial infarction; K05.6 Periodontal disease, unspecified; K21.9 Gastro-esophageal reflux disease without esophagitis; N18.30 Chronic kidney disease, stage 3 unspecified; N32.0 Bladder-neck obstruction; N40.1 Benign prostatic hyperplasia with lower urinary tract symptoms; N41.9 Inflammatory disease of prostate, unspecified; R33.8 Other retention of urine; R65.20 Severe sepsis without septic shock; Z79.890 Hormone replacement therapy; Z79.899 Other long term (current) drug therapy; I95.9 Hypotension, unspecified
CPT/HCPCS: 36415; 36573; 71045; 74176; 76770; 80048; 80053; 80061; 80202; 81001; 82010; 82803; 82947; 82962; 83036; 83735; 84100; 84443; 85025; 85651; 86140; 86705; 86706; 86803; 87040; 87077; 87086; 87147; 87186; 87340; 87521; 93005; 93306; 96374; 99285; 99291; G0378; J0690; J0696; J1335; J1644; J3370; C1751; G0009; J1815; J3475; J7030; J7050

== ENCOUNTER → 2020-07-23 | Outpatient (CLI) | payer MEDICAID ==
[~2020-07-23] MED LIST changes: +ATOR20TA86 PO; +ERTA1VIA IVPB; +INSU100I11 SQ-INSULIN; +INSU100I34 SQ; +INSU100I34 SQ-INSULIN; +INSU100I48 SQ; +LEVO25TA2 PO; +LISI-606 PO; +SMZ/TMP; +TAMS-11 PO
== END | disposition home or self-care (01) ==
LOC: STAR 10:09
PROVIDERS: ATTEND Urology
DX: Z20.822 Contact with and (suspected) exposure to COVID-19 (principal); N40.1 Benign prostatic hyperplasia with lower urinary tract symptoms
CPT/HCPCS: U0003

== ENCOUNTER 2020-07-27 16:46 | Inpatient (IN) | payer MEDICAID ==
[~2020-07-27] VITALS: Ht 182.9 cm; Wt 84.8 kg
[2020-07-27] MEDS ORDERED: DAPTOMYCIN 420 MG in SODIUM CHLORIDE 0.9% 100 ML IVPB STA (16:53)
--- NOTE | 2020-07-27 17:00 | NUR ---
ASSUMED CARE OF PATIENT. PT REPORTS HIS UROLOGIST DR POE, WANTED HIM TO COME TO THE ER FOR A BLOOD INFECTION. PT IS SUPPOSED TO HAVE SURGERY ON HIS PROSTATE. PT DOES HAVE A DAWSON CATHETER IN PLACE. NO ACUTE DISTRESS NOTED. VS STABLE. CALL LIGHT IN PLACE. WILL CONTINUE TO MONITOR.
--- NOTE | 2020-07-27 17:02 | NUR ---
DR RHOADES IN ROOM
--- NOTE | 2020-07-27 17:21 | NUR ---
BOTH BLOOD CULTURES DRAWN
[2020-07-27 17:27] LABS: BASOPHILS % (AUTO) 1 % (0-1); EOSINOPHILS % (AUTO) 5 % (1-7); LYMPHOCYTES % (AUTO) 21 % (22-44); MEAN CORPUSCULAR HEMOGLOBIN 31.3 pg (27.5-34.5); MEAN CORPUSCULAR HGB CONC 34.2 g/dL (33.2-36.2); MONOCYTES % (AUTO) 4 % (2-9); NEUTROPHILS % (AUTO) 70 % (42-75); PLATELET COUNT 267 x10^3/uL (130-400); RED BLOOD COUNT 3.28 x10^6/uL (4.38-5.82); RED CELL DISTRIBUTION WIDTH 13.6 % (9.4-14.8)
[2020-07-27 17:28] LABS: MD NO
--- NOTE | 2020-07-27 17:30 | NUR ---
dr garcia okayed patient to eat
[2020-07-27 17:54] LABS: ALBUMIN 3.1 g/dL (3.4-5.0); ANION GAP 6 mmol/L (5-15); CALCIUM 8.3 mg/dL (8.5-10.1); CHLORIDE 106 mmol/L (98-107); CREATININE 2.07 mg/dL (0.7-1.3)
[2020-07-27 18:04] LABS: MICROSCOPIC INDICATED
[2020-07-27] MEDS: DAPTOMYCIN 500 MG in SODIUM CHLORIDE 0.9% 100 ML IVPB SCH (18:11)
[2020-07-27] MEDS ORDERED: SODIUM CHLORIDE FLUSH 10ML SYR IVF PRN (18:30)
--- NOTE | 2020-07-27 18:31 | NUR ---
PT WATCHING TV IN ROOM. VS STABLE. NO ACUTE DISTRESS NOTED. CALL LIGHT IN PLACE. WILL CONTINUE TO MONITOR.
--- NOTE | 2020-07-27 18:58 | NUR ---
PT HAD NOT EATING ALL DAY BECAUSE HE THOUGHT HE WAS HAVING SURGERY. PER DR RHOADES PT WAS GIVEN A MEAL TRAY. VS STABLE. NO ACUTE DISTRESS NOTED. CALL LIGHT IN PLACE. WILL CONTINUE TO MONITOR.
--- NOTE | 2020-07-27 19:06 | NUR ---
HOSPITALIST IN ROOM
[2020-07-27 19:43] VITALS: BP 123/79
[2020-07-27] MEDS ORDERED: LIDODERM 5% PATCH TD PRN (20:00)
[2020-07-27] MEDS ORDERED: ENALAPRILAT 1.25 MG/ML, 2ML IVPush PRN (20:00)
[2020-07-27] MEDS ORDERED: ACETAMINOPHEN 325 MG TABLET PO PRN (20:00)
[2020-07-27] MEDS ORDERED: DOCUSATE 100 MG CAPSULE PO PRN (20:00)
[2020-07-27] MEDS ORDERED: MELATONIN 5 MG TABLET PO PRN (21:00)
[2020-07-27] MEDS ORDERED: INSULIN LISPRO 100 UNITS/ML, PEN SQ-INSULIN SCH (21:30)
[2020-07-27] MEDS ORDERED: INSULIN GLARGINE 100 UNITS/ML, PEN SQ-INSULIN SCH (21:30)
[2020-07-27] MEDS: INSULIN GLARGINE 100 UNITS/ML, PEN SQ-INSULIN SCH (22:28)
[2020-07-27] MEDS: ATORVASTATIN 20 MG TABLET PO SCH (22:28)
[2020-07-27] MEDS: LISINOPRIL 5 MG TABLET PO SCH (22:28)
[2020-07-27] MEDS: HEPARIN 5,000 UNITS/ML, 1ML SQ SCH (22:29)
[2020-07-28] MEDS ORDERED: PHARMACY MAY ADJ FOR RENAL FX MC PRN
[2020-07-28 01:41] VITALS: BP 125/83
[2020-07-28 04:58] LABS: BASOPHILS % (AUTO) 1 % (0-1); EOSINOPHILS % (AUTO) 8 % (1-7); LYMPHOCYTES % (AUTO) 39 % (22-44); MEAN CORPUSCULAR HEMOGLOBIN 30.9 pg (27.5-34.5); MEAN CORPUSCULAR HGB CONC 33.9 g/dL (33.2-36.2); MONOCYTES % (AUTO) 5 % (2-9); NEUTROPHILS % (AUTO) 48 % (42-75); PLATELET COUNT 266 x10^3/uL (130-400); RED BLOOD COUNT 3.36 x10^6/uL (4.38-5.82); RED CELL DISTRIBUTION WIDTH 13.7 % (9.4-14.8)
[2020-07-28 05:07] LABS: MD NO
[2020-07-28 05:09] LABS: ANION GAP 3 mmol/L (5-15); CALCIUM 8.5 mg/dL (8.5-10.1); CHLORIDE 108 mmol/L (98-107); CREATININE 1.74 mg/dL (0.7-1.3)
[2020-07-28] MEDS: OMEPRAZOLE 20 MG CAPSULE.DR PO SCH (06:35)
[2020-07-28] MEDS: HEPARIN 5,000 UNITS/ML, 1ML SQ SCH ×2 (06:35→16:45)
[2020-07-28] MEDS: LEVOTHYROXINE 125 MCG TABLET PO SCH (06:35)
[2020-07-28] MEDS: INSULIN LISPRO 100 UNITS/ML, PEN SQ-INSULIN SCH ×4 (07:00→21:20)
[2020-07-28] MEDS ORDERED: INSULIN LISPRO 100 UNITS/ML, PEN SQ-INSULIN SCH (07:30)
[2020-07-28 08:30] VITALS: BP 126/85
[2020-07-28] MEDS: TAMSULOSIN 0.4 MG CAP.ER.24H PO SCH (09:31)
[2020-07-28] MEDS: LISINOPRIL 5 MG TABLET PO SCH ×2 (09:31→21:09)
[2020-07-28] MEDS ORDERED: INSULIN LISPRO 100 UNIT/ML, 3ML VIAL SQ-INSULIN SCH (11:30)
[2020-07-28 14:50] VITALS: BP 131/84
[2020-07-28] MEDS: DAPTOMYCIN 500 MG in SODIUM CHLORIDE 0.9% 100 ML IVPB SCH (18:06)
[2020-07-28 19:29] VITALS: BP 115/75
[2020-07-28] MEDS: ATORVASTATIN 20 MG TABLET PO SCH (21:09)
[2020-07-28] MEDS: INSULIN GLARGINE 100 UNITS/ML, PEN SQ-INSULIN SCH (21:19)
[2020-07-29] MEDS: HEPARIN 5,000 UNITS/ML, 1ML SQ SCH ×3 (00:13→16:24)
[2020-07-29 01:00] VITALS: BP 121/84
[2020-07-29] MEDS: LEVOTHYROXINE 125 MCG TABLET PO SCH (04:25)
[2020-07-29] MEDS: OMEPRAZOLE 20 MG CAPSULE.DR PO SCH (06:01)
[2020-07-29 06:03] LABS: BASOPHILS % (AUTO) 1 % (0-1); EOSINOPHILS % (AUTO) 6 % (1-7); LYMPHOCYTES % (AUTO) 33 % (22-44); MEAN CORPUSCULAR HEMOGLOBIN 30.9 pg (27.5-34.5); MEAN CORPUSCULAR HGB CONC 33.9 g/dL (33.2-36.2); MONOCYTES % (AUTO) 5 % (2-9); NEUTROPHILS % (AUTO) 56 % (42-75); PLATELET COUNT 257 x10^3/uL (130-400); RED BLOOD COUNT 3.69 x10^6/uL (4.38-5.82); RED CELL DISTRIBUTION WIDTH 13.5 % (9.4-14.8)
[2020-07-29 06:05] LABS: MD NO
[2020-07-29 06:10] LABS: ALBUMIN 2.8 g/dL (3.4-5.0); ANION GAP 7 mmol/L (5-15); CALCIUM 8.6 mg/dL (8.5-10.1); CHLORIDE 108 mmol/L (98-107); CREATININE 1.53 mg/dL (0.7-1.3)
[2020-07-29] MEDS: INSULIN LISPRO 100 UNITS/ML, PEN SQ-INSULIN SCH ×4 (07:00→20:40)
[2020-07-29 08:02] VITALS: BP 121/79
[2020-07-29] MEDS: LISINOPRIL 5 MG TABLET PO SCH ×2 (08:41→20:42)
[2020-07-29] MEDS: TAMSULOSIN 0.4 MG CAP.ER.24H PO SCH (08:41)
[2020-07-29 13:13] VITALS: BP 113/79
[2020-07-29] MEDS: PIPERACILLIN/TAZO/PMX 3.375GM 50 ML IV SCH (17:55)
[2020-07-29] MEDS: DAPTOMYCIN 500 MG in SODIUM CHLORIDE 0.9% 100 ML IVPB SCH (18:38)
[2020-07-29 18:51] VITALS: BP 116/75
[2020-07-29] MEDS: INSULIN GLARGINE 100 UNITS/ML, PEN SQ-INSULIN SCH (20:39)
[2020-07-29] MEDS: ATORVASTATIN 20 MG TABLET PO SCH (20:42)
[2020-07-30 00:04] VITALS: BP 126/90
[2020-07-30] MEDS: HEPARIN 5,000 UNITS/ML, 1ML SQ SCH ×4 (01:42→23:21)
[2020-07-30] MEDS: PIPERACILLIN/TAZO/PMX 3.375GM 50 ML IV SCH ×3 (01:42→17:44)
[2020-07-30] MEDS: LEVOTHYROXINE 125 MCG TABLET PO SCH (05:33)
[2020-07-30] MEDS: OMEPRAZOLE 20 MG CAPSULE.DR PO SCH (06:31)
[2020-07-30] MEDS: TAMSULOSIN 0.4 MG CAP.ER.24H PO SCH (07:50)
[2020-07-30 07:51] VITALS: BP 117/77
[2020-07-30] MEDS: LISINOPRIL 5 MG TABLET PO SCH ×2 (07:51→21:02)
[2020-07-30] MEDS: INSULIN LISPRO 100 UNITS/ML, PEN SQ-INSULIN SCH ×4 (07:57→20:59)
[2020-07-30 15:16] VITALS: BP 102/64
[2020-07-30] MEDS: DAPTOMYCIN 500 MG in SODIUM CHLORIDE 0.9% 100 ML IVPB SCH (18:25)
[2020-07-30 18:46] VITALS: BP 137/92
[2020-07-30] MEDS: INSULIN GLARGINE 100 UNITS/ML, PEN SQ-INSULIN SCH (20:59)
[2020-07-30 21:00] VITALS: BP 119/85
[2020-07-30] MEDS: ATORVASTATIN 20 MG TABLET PO SCH (21:00)
[2020-07-31] MEDS: PIPERACILLIN/TAZO/PMX 3.375GM 50 ML IV SCH (01:40)
[2020-07-31 01:50] VITALS: BP 125/90
[2020-07-31] MEDS: OMEPRAZOLE 20 MG CAPSULE.DR PO SCH (06:07)
[2020-07-31] MEDS: LEVOTHYROXINE 125 MCG TABLET PO SCH (06:07)
[2020-07-31] MEDS: INSULIN LISPRO 100 UNITS/ML, PEN SQ-INSULIN SCH ×4 (07:48→22:03)
[2020-07-31] MEDS: TAMSULOSIN 0.4 MG CAP.ER.24H PO SCH (07:49)
[2020-07-31] MEDS: LISINOPRIL 5 MG TABLET PO SCH ×2 (07:49→21:39)
[2020-07-31 07:51] VITALS: BP 123/86
[2020-07-31] MEDS: HEPARIN 5,000 UNITS/ML, 1ML SQ SCH ×2 (11:49→18:33)
[2020-07-31] MEDS: MEROPENEM 1 GM in SODIUM CHLORIDE 0.9% 100 ML IV SCH ×2 (11:54→23:46)
[2020-07-31 13:17] VITALS: BP 112/76
[2020-07-31] MEDS ORDERED: CHLORHEXIDINE 15 ML UDC PO ONE ×2 (16:00→19:00)
[2020-07-31] MEDS ORDERED: PROPOFOL 10 MG/ML, 20ML ONE (16:26)
[2020-07-31] MEDS ORDERED: SUGAMMADEX 200 MG/2 ML IVPush ONE (16:26)
[2020-07-31] MEDS ORDERED: ROCURONIUM 10 MG/ML,10ML ONE (16:26)
[2020-07-31] MEDS ORDERED: CEFAZOLIN 1,000 MG ONE (16:26)
[2020-07-31] MEDS ORDERED: FENTANYL PF 100 MCG/2ML ONE (16:26)
[2020-07-31] MEDS ORDERED: MIDAZOLAM 1 MG/ML, 2ML ONE (16:26)
[2020-07-31] MEDS ORDERED: DIAZEPAM 5 MG/ML, 2ML IVPush PRN (17:30)
[2020-07-31] MEDS ORDERED: PROMETHAZINE 25 MG/ML, 1ML IVPush PRN (17:30)
[2020-07-31] MEDS ORDERED: MEPERIDINE/PF 25MG/0.5ML IVPush PRN (17:30)
[2020-07-31] MEDS ORDERED: LABETALOL 5MG/ML, 20ML IV PRN (17:30)
[2020-07-31] MEDS ORDERED: ACETAMINOPHEN 325 MG TABLET PO PRN (17:30)
[2020-07-31] MEDS ORDERED: OXYcodone 5 MG/5 ML ORAL.SOL UDC PO PRN (17:30)
[2020-07-31] MEDS ORDERED: FENTANYL PF 100 MCG/2ML IV PRN (17:30)
[2020-07-31] MEDS ORDERED: ONDANSETRON 2MG/ML, 2ML IVPush PRN (17:30)
[2020-07-31] MEDS ORDERED: DIPHENHYDRAMINE 50 MG/ML, 1ML IVPush PRN (17:30)
[2020-07-31] MEDS ORDERED: hydrALAzine 20 MG/ML, 1ML IV PRN (17:30)
[2020-07-31] MEDS ORDERED: HYDROmorphone 1 MG/ML, 1ML INJ IVPush PRN (17:30)
[2020-07-31 20:11] VITALS: BP 139/85
[2020-07-31] MEDS: ATORVASTATIN 20 MG TABLET PO SCH (21:39)
[2020-07-31] MEDS: DAPTOMYCIN 500 MG in SODIUM CHLORIDE 0.9% 100 ML IVPB SCH (21:40)
[2020-07-31] MEDS: INSULIN GLARGINE 100 UNITS/ML, PEN SQ-INSULIN SCH (22:02)
[2020-08-01] MEDS: HEPARIN 5,000 UNITS/ML, 1ML SQ SCH (02:05)
[2020-08-01 03:00] VITALS: BP 109/75
[2020-08-01] MEDS: LEVOTHYROXINE 125 MCG TABLET PO SCH (06:33)
[2020-08-01] MEDS: OMEPRAZOLE 20 MG CAPSULE.DR PO SCH (06:33)
[2020-08-01] MEDS: TAMSULOSIN 0.4 MG CAP.ER.24H PO SCH (07:58)
[2020-08-01] MEDS: MEROPENEM 1 GM in SODIUM CHLORIDE 0.9% 100 ML IV SCH (07:58)
[2020-08-01] MEDS: LISINOPRIL 5 MG TABLET PO SCH (07:58)
[2020-08-01] MEDS: INSULIN LISPRO 100 UNITS/ML, PEN SQ-INSULIN SCH (07:58)
[2020-08-01 08:04] VITALS: BP 101/72
[2020-08-01 09:09] LABS: BASOPHILS % (AUTO) 1 % (0-1); EOSINOPHILS % (AUTO) 4 % (1-7); LYMPHOCYTES % (AUTO) 21 % (22-44); MEAN CORPUSCULAR HEMOGLOBIN 30.7 pg (27.5-34.5); MEAN CORPUSCULAR HGB CONC 33.4 g/dL (33.2-36.2); MEAN PLATELET VOLUME 9.4 fL (7.4-10.4); MONOCYTES % (AUTO) 6 % (2-9); NEUTROPHILS % (AUTO) 68 % (42-75); PLATELET COUNT 258 x10^3/uL (130-400); RED BLOOD COUNT 3.89 x10^6/uL (4.38-5.82); RED CELL DISTRIBUTION WIDTH 13.5 % (9.4-14.8)
[2020-08-01 09:10] LABS: MD NO
[2020-08-01 09:19] LABS: ANION GAP 3 mmol/L (5-15); CALCIUM 8.7 mg/dL (8.5-10.1); CHLORIDE 104 mmol/L (98-107); CREATININE 1.83 mg/dL (0.7-1.3)
[2020-08-01] MEDS ORDERED: LINEZOLID 600 MG TABLET PO SCH (10:00)
[2020-08-01] MEDS ORDERED: LEVOFLOXACIN 750 MG TABLET PO SCH (10:00)
[2020-08-01] MEDS ORDERED: LINE600T15 PO (10:06)
[2020-08-01] MEDS ORDERED: LEVO750T6 PO (10:06)
== END 2020-08-01 11:00 | disposition home or self-care (01) | DRG 666 ==
LOC: ED 18:22 → EDIP 18:28 → ED 18:49 → 4NW 19:39
PROVIDERS: ADMIT Internal Medicine; ATTEND Internal Medicine
PROC: 0VB08ZZ Excision of Prostate, Via Natural or Artificial Opening Endoscopic (ICD-10-PCS; principal; 2020-07-31 17:00)
DX: T83.518A Infection and inflammatory reaction due to other urinary catheter, initial encounter (principal); N30.00 Acute cystitis without hematuria; R78.81 Bacteremia; Z16.21 Resistance to vancomycin; B95.2 Enterococcus as the cause of diseases classified elsewhere; D63.1 Anemia in chronic kidney disease; E03.9 Hypothyroidism, unspecified; E11.22 Type 2 diabetes mellitus with diabetic chronic kidney disease; E11.65 Type 2 diabetes mellitus with hyperglycemia; E78.5 Hyperlipidemia, unspecified; F17.210 Nicotine dependence, cigarettes, uncomplicated; N18.30 Chronic kidney disease, stage 3 unspecified; I12.9 Hypertensive chronic kidney disease with stage 1 through stage 4 chronic kidney disease, or unspecified chronic kidney disease; N40.1 Benign prostatic hyperplasia with lower urinary tract symptoms; B19.20 Unspecified viral hepatitis C without hepatic coma; Y84.6 Urinary catheterization as the cause of abnormal reaction of the patient, or of later complication, without mention of misadventure at the time of the procedure; Z79.4 Long term (current) use of insulin; Z81.1 Family history of alcohol abuse and dependence; Z82.49 Family history of ischemic heart disease and other diseases of the circulatory system
CPT/HCPCS: 36415; 80048; 80069; 81001; 82040; 82962; 83735; 85025; 87040; 87077; 87086; 87186; 93005; 96365; G0378; J0690; J0878; J1644; J2185; J2250; J2543; J2704; J3010; J1815

== ENCOUNTER 2020-08-13 21:28 | Emergency (ER) | payer MEDICAID ==
[~2020-08-13] VITALS: Ht 182.9 cm; Wt 85.8 kg
[~2020-08-13 21:28] MED LIST changes: +LEVO750T6 PO; +LINE600T15 PO
--- NOTE | 2020-08-13 21:56 | NUR ---
PT AMBULATED TO ROOM. C/O PAIN TO LOWER ABDOMEN RELATED TO NOT BEING ABLE TO URINATE SINCE YESTERDAY. PT SAYS IT'S THE FIRST TIME. AND THAT HE RECENTLY HAD PROSTATE SURGERY TO REDUCE THE PROSTATE SIZE.
--- NOTE | 2020-08-13 22:08 | NUR ---
PT DRANK A LITTLE BIT OF WATER TO TRY AND URINATE. ATTEMPTED IT AND UNABLE TO URINATE AT THIS TIME. PA TO BEDSIDE TO EVAL PT.
--- NOTE | 2020-08-13 22:35 | NUR ---
16FR DAWSON CATHETER PLACED USING STERILE TECHNIQUE AND FOLLOWING PROTOCOL FOR NEEDS. PRIOR TO PLACEMENT, PTS BLADDER WAS SCANNED AND THE SCANNER SHOWS >999ML OF URINE IN THE BLADDER. PT SCANNED 2 TIMES. CATHETER PLACED WITHOUT ISSUE, NO RESISTANCE AND PT TOLERATED WELL, AND GREATER THAN 2.5 LITERS HAVE DRAINED AFTER APPROXIMATELY 10 MIN. PA MADE AWARE.
[2020-08-13 23:18] VITALS: BP 128/68
--- NOTE | 2020-08-13 23:34 | NUR ---
PT BLADDER SCANNED AGAIN, AND THE MACHINE SAYS 0 ML VOLUME AT THIS TIME.
--- NOTE | 2020-08-14 00:02 | NUR ---
2ND SAMPLE OF URINE SENT TO LAB AT THIS TIME, NO RESULTS CAME BACK THE FIRST TIME, AND IT IS NOT FOUND AT THIS TIME.
[2020-08-14 00:29] LABS: MICROSCOPIC INDICATED
--- NOTE | 2020-08-14 00:53 | NUR ---
PT PROVIDED SANDWICH AND SOME CRACKERS TO HELP HIM HE SAYS HE'S STARVING, AND DIDN'T GET TO EAT DINNER.
--- NOTE | 2020-08-14 01:29 | NUR ---
PT TO BE D/C'D. AND DAWSON BAG REPLACED FOR PT. HE IS BEING D/C'D. STERILE TECHNIQUE USED AND PT TOLERATED WELL. F/U AND D/C INSTRUCTIONS GIVEN TO PT WITH PRESCRIPTIONS AND HE V/U AND AMBULATED OUT.
== END 2020-08-14 01:32 | disposition home or self-care (01) ==
LOC: ED 08-14 01:01
DX: N30.01 Acute cystitis with hematuria (principal); N40.1 Benign prostatic hyperplasia with lower urinary tract symptoms; R33.8 Other retention of urine; K21.9 Gastro-esophageal reflux disease without esophagitis; E11.9 Type 2 diabetes mellitus without complications
CPT/HCPCS: 51702; 81001; 87086; 87106; 99284

== ENCOUNTER 2020-09-02 19:28 | Emergency (ER) | payer MEDICAID ==
[~2020-09-02] VITALS: Ht 182.9 cm; Wt 74.5 kg
[2020-09-02] MEDS ORDERED: INSU100C5 SQ-INSULIN (19:36)
[2020-09-02] MEDS ORDERED: CHOL10003 PO (19:36)
[2020-09-02] MEDS ORDERED: ARGI1000 PO (19:36)
[2020-09-02] MEDS ORDERED: CINN500C2 PO (19:36)
--- NOTE | 2020-09-02 19:47 | NUR ---
PT BIB EMS FOR HYPOTENSION. STATES HE HAS BEEN FEELING WEAKER RECENTLY WITH DIZZINESS, LIGHT HEADEDNESS AND 3-4 FALLS. STATES HE HIT HIS HEAD ONCE ON A FALL BUT DENIES LOC. ON ARRIVAL PT FOUND TO BE HYPOTENSIVE 84/63. PT GIVEN 1L NS ENROUTE. BP NOW 106/74. PT STATES HE WAS HERE ABOUT A MONTH AGO FOR URINARY SEPSIS, THEN 2 WEEKS AGO HAD A PROSTATE SX. PT REPORTS PEEING BLOOD LAST NIGHT THAT WAS DARK IN COLOR BUT HAS SINCE RESOLVED. PT HAS HX OF DM AND EMS REPORTS GLUCOSE OF [address] 376 GLUCOSE FS ON ARRIVAL. NAD, BED IN LOWEST, RAILS ENGAGED, CALL LIGHT ON LAP, VSS, WCTM. PROVIDED WARM BLANKETS OR COMFORT.
[2020-09-02] MEDS ORDERED: ONDANSETRON 2MG/ML, 2ML ONE (20:13)
[2020-09-02] MEDS ORDERED: SODIUM CHLORIDE FLUSH 10ML SYR IVF ONE (20:30)
[2020-09-02] MEDS ORDERED: SODIUM CHLORIDE 0.9% 1,000ML IVBOLUS ONE ×2 (20:30→21:30)
[2020-09-02] MEDS ORDERED: ONDANSETRON 2MG/ML, 2ML IVPush ONE (20:30)
[2020-09-02 20:42] LABS: ALANINE AMINOTRANSFERASE 68 U/L (12-78); ALBUMIN 3.4 g/dL (3.4-5.0); ANION GAP 17 mmol/L (5-15); CALCIUM 9.1 mg/dL (8.5-10.1); CHLORIDE 96 mmol/L (98-107); CREATININE 2.41 mg/dL (0.7-1.3)
[2020-09-02 20:43] LABS: BASOPHILS % (AUTO) 2 % (0-1); EOSINOPHILS % (AUTO) 1 % (1-7); LYMPHOCYTES % (AUTO) 36 % (22-44); MD NO; MEAN CORPUSCULAR HGB CONC 33.1 g/dL (33.2-36.2); MEAN PLATELET VOLUME 9.6 fL (7.4-10.4); MONOCYTES % (AUTO) 7 % (2-9); NEUTROPHILS % (AUTO) 54 % (42-75); PLATELET COUNT 369 x10^3/uL (130-400); RED BLOOD COUNT 4.22 x10^6/uL (4.38-5.82)
[2020-09-02 20:46] LABS: ALKALINE PHOSPHATASE 137 U/L (45-117); BILIRUBIN,TOTAL 0.4 mg/dL (0.2-1.0); TOTAL PROTEIN 7.9 g/dL (6.4-8.2); TROPONIN I < 0.015 ng/mL (0.000-0.045)
--- NOTE | 2020-09-02 21:23 | NUR ---
PT NAD, RESTING ON GURNEY, APPEARS COMFORTABLE, VSS, PROVIDED URINAL AND INFORMED THAT WE NEED URINE SAMPLE. PT BED IN LOWEST, RAILS ENGAGED, CALL LIGHT ON LAP, WCTM. WAITING FOR UA SAMPLE.
[2020-09-02 22:07] LABS: MICROSCOPIC INDICATED
--- NOTE | 2020-09-02 22:22 | NUR ---
PT RESTING ON GURNEY, NAD, EYES CLOSED, VSS, NO CHANGE IN CONDITION, CHART UP FOR RCK. WCTM.
[2020-09-02] MEDS ORDERED: CEFDINIR 300 MG CAPSULE PO ONE (22:30)
[2020-09-02] MEDS ORDERED: CEFDINIR 300 MG CAPSULE ONE (22:52)
[2020-09-02 22:58] VITALS: BP 124/81
--- NOTE | 2020-09-02 22:59 | NUR ---
Patient given discharge instructions and they have confirmed that they understand the instructions. Patient ambulatory with steady gait. RN CALLED PT S.O. AND GAVE HER UPDATE ON DC AND DIAGNOSIS. ALL QUESTIONS ANSWERED APPROPRIATELY. PT NAD, DENIES ADDITIONAL NEEDS, VSS, NO PERSONAL BELONGINGS LEFT IN ROOM AFTER DC.
== END 2020-09-02 23:24 | disposition home or self-care (01) ==
LOC: ED 20:50
DX: N30.01 Acute cystitis with hematuria (principal); R55 Syncope and collapse; E86.0 Dehydration; R11.2 Nausea with vomiting, unspecified; E11.22 Type 2 diabetes mellitus with diabetic chronic kidney disease; I12.9 Hypertensive chronic kidney disease with stage 1 through stage 4 chronic kidney disease, or unspecified chronic kidney disease; N18.9 Chronic kidney disease, unspecified; R94.31 Abnormal electrocardiogram [ECG] [EKG]; E03.9 Hypothyroidism, unspecified; K21.9 Gastro-esophageal reflux disease without esophagitis
CPT/HCPCS: 36415; 80053; 81001; 83690; 84484; 85025; 87086; 93005; 96361; 96374; 99285; J2405; J7030; 87077

== ENCOUNTER 2020-09-04 17:22 | Emergency (ER) | payer MEDICAID ==
[~2020-09-04] VITALS: Ht 185.4 cm; Wt 72.2 kg
[~2020-09-04 17:22] MED LIST changes: +ARGI1000 PO; +CHOL10003 PO; +CINN500C2 PO; +INSU100C5 SQ-INSULIN
--- NOTE | 2020-09-04 17:46 | NUR ---
PT ADELITA, EMS REPORTS C/O NAUSEA/VOMITTING/DIZZINESS THAT STARTED 4 HOURS AGO. EMS STATES THAT PT WAS HERE YESTERDAY AND CALLED THEM TODAY FOR UNRESOLVED SYMPTOMS. PT STATES THAT MEDICATION THAT HE WAS PRESCRIBED MAKES HIM VOMIT. PT A&O, RESPS EVEN AND UNLABORED, MONITORS ATTACHED, NEURO INTACT, NADN, VSS. WARM BLANKET PROVIDED, CALL LIGHT IN REACH.
--- NOTE | 2020-09-04 17:57 | NUR ---
ALL MONITORS ATTACHED, NRS, VSS. ERMD MARLO AT BEDSIDE FOR EVAL.
--- NOTE | 2020-09-04 18:34 | NUR ---
PT RESTING IN BED, A&O. RESPS EVEN AND UNLABORED, VSS, ALL MONITORS ATTACHED, NSR, NADN. AWAITING LAB RESULTS AND DISPO.
[2020-09-04 18:36] LABS: MICROSCOPIC INDICATED
[2020-09-04 18:38] LABS: ANION GAP 17 mmol/L (5-15); CALCIUM 9.1 mg/dL (8.5-10.1); CHLORIDE 99 mmol/L (98-107)
[2020-09-04 18:40] LABS: CREATININE 2.51 mg/dL (0.7-1.3)
--- NOTE | 2020-09-04 18:47 | NUR ---
REPORT RECEIVED FROM ROSETTE FORTE
[2020-09-04] MEDS ORDERED: SODIUM CHLORIDE 0.9% 1,000ML IVBOLUS ONE (19:00)
--- NOTE | 2020-09-04 19:02 | NUR ---
PT SUPINE ON GURNEY, RESTING COMFORTABLY. PT WALKED TO BATHROOM WITH STEADY GAIT WITH THIS RN. PT ASKING FOR FOOD, ERP AWARE. NO ADDITIONAL NEEDS AT THIS TIME. CALL LIGHT AND PERSONAL BELONGINGS WITHIN REACH.
[2020-09-04] MEDS ORDERED: INSULIN SINGLE DOSE, ER ONE (19:21)
[2020-09-04] MEDS ORDERED: INSULIN REGULAR 100 UNITS/ML, 3ML VIAL SQ-INSULIN ONE (19:30)
[2020-09-04 20:55] VITALS: BP 105/62
[2020-09-04] MEDS ORDERED: FLUCONAZOLE 100 MG TABLET ONE (21:23)
[2020-09-04] MEDS ORDERED: FLUCONAZOLE 100 MG TABLET PO ONE (21:30)
--- NOTE | 2020-09-04 21:30 | NUR ---
Patient given discharge instructions and they have confirmed that they understand the instructions. Patient ambulatory with steady gait.
== END 2020-09-04 21:47 | disposition home or self-care (01) ==
LOC: ED 18:30
DX: N39.0 Urinary tract infection, site not specified (principal); E11.65 Type 2 diabetes mellitus with hyperglycemia; R11.2 Nausea with vomiting, unspecified; E86.0 Dehydration; I10 Essential (primary) hypertension; K21.9 Gastro-esophageal reflux disease without esophagitis; E03.9 Hypothyroidism, unspecified; E11.21 Type 2 diabetes mellitus with diabetic nephropathy; F17.200 Nicotine dependence, unspecified, uncomplicated
CPT/HCPCS: 36415; 80048; 81001; 87086; 87106; 96360; 96361; 99285; J1815; J7030